=== PATIENT | female | born 1975 | race Caucasian/White ===

== ENCOUNTER 2018-03-29 11:05 | Emergency (ER) | payer BC ==
[~2018-03-29] VITALS: Ht 149.9 cm; Wt 77.6 kg
[~2018-03-29 11:05] MED LIST: AUGMENTIN1 TA2 PO; OMEPRAZOLE10 M1 PO; XANAX0.25 MG PO; ZYR5 PO
[2018-03-29 11:20] VITALS: Ht 149.9 cm; Wt 77.6 kg
[2018-03-29 12:35] VITALS: BP 120/70
== END 2018-03-29 12:36 | disposition home or self-care (01) ==
LOC: ED 11:05
DX: R07.89 Other chest pain (principal); Z87.19 Personal history of other diseases of the digestive system